=== PATIENT | male | born 1970 | race Two or more races ===

== ENCOUNTER 2019-03-26 16:20 | Emergency (ER) | payer OTHER ==
[2019-03-26 16:24] VITALS: BP 132/87; PULSE 88; TEMP 98.6; BMI 28.8
[2019-03-26] MEDS ORDERED: KETOROLAC TROMETHAMINE 60 MG/2 ML VIAL IM ONE (16:42)
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
[2019-03-26] MEDS ORDERED: KETOROLAC TROMETHAMINE 60 MG/2 ML VIAL ONE (16:51)
== END 2019-03-26 17:31 | disposition home or self-care (01) ==
LOC: JERFT 16:20
PROC: 3E0233Z Introduction of Anti-inflammatory into Muscle, Percutaneous Approach (ICD-10-PCS; principal; 2019-03-26)
DX: Z04.1 Encounter for examination and observation following transport accident (principal); M54.6 Pain in thoracic spine; M25.512 Pain in left shoulder; V89.2XXA Person injured in unspecified motor-vehicle accident, traffic, initial encounter; Y92.488 Other paved roadways as the place of occurrence of the external cause
CPT/HCPCS: 71046-TC-FY; 72050-TC-FY; 73010-TC-FY; 99284-25

== ENCOUNTER 2020-04-23 23:33 | Emergency (ER) | payer OTHER ==
[2020-04-23 23:37] VITALS: BP 130/78; PULSE 62; TEMP 98.4; BMI 33.5
[2020-04-23] MEDS ORDERED: ACETAMINOPHEN 500 MG TABLET (FP) PO ONE (23:53)
[2020-04-24] MEDS ORDERED: ACETAMINOPHEN 500 MG TABLET (FP) ONE (00:01)
[2020-04-24] MEDS ORDERED: KETOROLAC TROMETHAMINE 30 MG/1 ML VIAL IM ONE (01:27)
[2020-04-24] MEDS ORDERED: KETOROLAC TROMETHAMINE 30 MG/1 ML VIAL ONE (01:31)
== END 2020-04-24 01:35 | disposition home or self-care (01) ==
LOC: JER 23:33
PROC: 3E0233Z Introduction of Anti-inflammatory into Muscle, Percutaneous Approach (ICD-10-PCS; principal; 2020-04-23)
DX: S09.90XA Unspecified injury of head, initial encounter (principal)
CPT/HCPCS: 70450-TC; 99284-25